=== PATIENT | male | born 1985 | race Caucasian/White ===

== ENCOUNTER 2017-10-07 16:08 | Emergency (ER) | payer MEDICAID ==
[2017-10-07] MEDS: ALBUTEROL 0.083% (NEB) 2.5 MG/3 ML AMP HHN (19:57)
[2017-10-07] MEDS: IPRATROPIUM (NEB) 0.5 MG/2.5 ML AMP HHN (19:57)
== END 2017-10-07 21:30 | disposition home or self-care (01) ==
LOC: FTE 16:08
DX: J45.21 Mild intermittent asthma with (acute) exacerbation (principal)
CPT/HCPCS: 94664; 99284

== ENCOUNTER 2018-03-24 23:41 | Emergency (ER) | payer MEDICAID | END 2018-03-25 02:23 | disposition home or self-care (01) | LOC: FTE 23:41 | DX: R07.89 Other chest pain (principal) | CPT/HCPCS: 71045; 93005; 99284-25 ==

== ENCOUNTER 2019-01-15 18:29 | Emergency (ER) | payer MEDICAID | END 2019-01-15 22:17 | disposition home or self-care (01) | LOC: FTE 18:29 | DX: J06.9 Acute upper respiratory infection, unspecified (principal) | CPT/HCPCS: 87880; 99283 ==